=== PATIENT | male | born 1960 | race Two or more races ===

== ENCOUNTER 2020-04-15 10:13 | Day surgery (SDC) | payer BC ==
[~2020-04-15] VITALS: Ht 167.6 cm; Wt 75.0 kg
[2020-04-15] MEDS ORDERED: LOSA50TA14 PO (10:43)
[2020-04-15 10:57] VITALS: BP 117/80
[2020-04-15 11:18] LABS: BASOPHILS # (AUTO) 0.04 x10^3/uL (0-0.1); BASOPHILS % (AUTO) 1 % (0-1); EOSINOPHILS # (AUTO) 0.18 x10^3/uL (0-0.4); EOSINOPHILS % (AUTO) 3 % (1-7); LYMPHOCYTES # (AUTO) 1.79 x10^3/uL (1-3.4); LYMPHOCYTES % (AUTO) 26 % (22-44); MD NO; MEAN CORPUSCULAR HEMOGLOBIN 33.6 pg (27.5-34.5); MEAN CORPUSCULAR HGB CONC 33.1 g/dL (33.2-36.2); MEAN CORPUSCULAR VOLUME 101.3 fL (81-97); MONOCYTES # (AUTO) 0.81 x10^3/uL (0.2-0.8); MONOCYTES % (AUTO) 12 % (2-9); NEUTROPHILS # (AUTO) 3.95 x10^3/uL (1.8-6.8); NEUTROPHILS % (AUTO) 58 % (42-75); PLATELET COUNT 306 x10^3/uL (130-400); RED BLOOD COUNT 4.74 x10^6/uL (4.38-5.82)
[2020-04-15] MEDS ORDERED: BIVALIRUDIN 250 MG ONE (11:33)
[2020-04-15] MEDS ORDERED: MIDAZOLAM 1 MG/ML, 5ML ONE (11:33)
[2020-04-15] MEDS ORDERED: HEPARIN 1,000 UNITS/ML, 10ML ONE (11:33)
[2020-04-15] MEDS ORDERED: LIDOCAINE 2%, 20ML ONE (11:33)
[2020-04-15] MEDS ORDERED: VERAPAMIL 2.5 MG/ML, 2ML ONE (11:33)
[2020-04-15] MEDS ORDERED: FENTANYL PF 100 MCG/2ML ONE (11:33)
[2020-04-15 12:42] LABS: ANION GAP 6 mmol/L (5-15); CALCIUM 8.7 mg/dL (8.5-10.1); CHLORIDE 110 mmol/L (98-107); CREATININE 1.05 mg/dL (0.7-1.3)
[2020-04-15] MEDS ORDERED: SODIUM CHLORIDE 0.9% 1,000 ML IV SCH (12:55)
== END 2020-04-15 14:16 | disposition home or self-care (01) ==
LOC: CACL 10:13
PROVIDERS: ATTEND Internal Medicine Cardiovascular Disease
DX: R93.1 Abnormal findings on diagnostic imaging of heart and coronary circulation (principal); I25.10 Atherosclerotic heart disease of native coronary artery without angina pectoris; G47.00 Insomnia, unspecified; I51.7 Cardiomegaly; M17.10 Unilateral primary osteoarthritis, unspecified knee; Z79.899 Other long term (current) drug therapy; Z98.890 Other specified postprocedural states
CPT/HCPCS: 36415; 80048; 85025; 93458; 99156; C1769; C1894; J1644; J2250; J3010; Q9967; J0583